=== PATIENT | male | born 1955 | race Caucasian/White ===

== ENCOUNTER → 2023-04-22 | Outpatient (CLI) | payer MEDICARE, OTHER ==
[2023-04-22 13:36] LABS: Prothrombin Time 10.6 sec (10.0-12.5)
[2023-04-22 17:38] LABS: Basophils # (A) 0.02 X 10*3/uL (0.00-0.10); Basophils % (A) 0.3 %; Eosinophils # (A) 0.19 X 10*3/uL (0.04-0.35); Eosinophils % (A) 2.9 %; HCT 46.3 % (39.6-50.0); Lymphocytes # (A) 1.55 X 10*3/uL (0.90-5.00); Lymphocytes % (A) 23.3 %; MCH 29.9 pg (27.0-32.0); MCHC 32.4 d/dL (32.0-37.0); MCV 92.4 FL (80.0-97.0); Mean Platelet Volume 9.8 FL (9.5-12.2); Monocytes # (A) 0.46 X 10*3/uL (0.20-1.00); Monocytes % (A) 6.9 %; NRBC Per 100 WBC 0 X 10*3/uL (0.00-0.01); Neutrophils # (A) 4.41 X 10*3/uL (1.80-7.70); Neutrophils % (A) 66.3 %; Platelet Count 207 X 10*3/uL (140-440); RBC 5.01 X 10*6/uL (4.40-5.60); RDW 13.1 % (11.5-14.5); WBC 6.65 X 10*3/uL (4.50-10.00)
== END | disposition home or self-care (01) ==
LOC: LABWHC1 12:52
DX: Z01.812 Encounter for preprocedural laboratory examination (principal); G89.4 Chronic pain syndrome; M46.1 Sacroiliitis, not elsewhere classified; M47.27 Other spondylosis with radiculopathy, lumbosacral region; M51.37 Other intervertebral disc degeneration, lumbosacral region; M54.51 Vertebrogenic low back pain; Z79.891 Long term (current) use of opiate analgesic
CPT/HCPCS: 36415; 85025; 85610; 85730